=== PATIENT | female | born 1955 | race Caucasian/White ===

== ENCOUNTER 2017-01-06 19:42 | Emergency (ER) | payer MEDICAID ==
[~2017-01-06 19:42] MED LIST: ADULT LOW DOSE81 MG PO; ANTIVERT25 MG PO; BACTRIM 400-801 EACH PO; CIPRO DPS500 MG PO; CULTURELLE1 CAP PO; DIFLUCAN DPS150 MG PO; FLAGYL-DPS500 MG PO; GLUCAGON1 MG/ML SQ; GLUTOSE 1537.5 GM PO; LANTUS100 UNITS/ SQ; LASIX DPS40 MG PO; LEXAPRO DPS10 MG PO; LIPITOR DPS20 MG PO; MAALOX DPS30 ML PO; MAGOX 400400 MG PO; METAMUCIL PACK3.4 GM PO; NORVASC2.5 MG PO; NOVOLOG100 UNIT/2 SQ; PRINIVIL20 MG PO; TOPROL XL DPS25 MG PO; TYLENOL325 MG PO; VITAMIN D50000 UNIT PO; ZOFRAN ODT4 MG PO; ZOFRAN4 MG PO
--- NOTE | 2017-01-25 21:34 | ER ---
ADMIT: 01/06/2017 RM/LOC: ER [facility] MR#: [id number] [address] [address] CHERYL NOLAND [address] [place] [address] Emergency Room Report SEX: F AGE: 61 : 1955 DATE: 01/06/2017 A 61-year-old who comes to the Emergency Department with complaints of vomiting, weakness, body aches, fevers, chills. See T-sheet for remainder of history and physical. CBC was significant for white count of 13.1, hemoglobin 11.4, sodium 146, creatinine 1.8. UA showed 70 wbc's, 53 rbc's, leukocyte esterase 2+. The patient was given a liter of fluids in the Emergency Department, a gram of Rocephin IV, and a prescription for Levaquin 500 mg x14 days, and Zofran. Instructed to follow up this week with her physician. Damon Guzman MD/ lynette JOB #: [id number] CC: Ruiz Doyle MD, Attending Physician Daniel Waterman MD, Family Physician
[2017-02-08] MEDS ORDERED: CLARITIN DPS10 MG PO (20:53)
[2017-02-08] MEDS ORDERED: PRILOSEC DPS20 MG PO (20:53)
[2017-02-08] MEDS ORDERED: MAG-OX400 MG PO (20:53)
[2017-02-08] MEDS ORDERED: TRESIBA FL100 UNIT/1 SQ (20:56)
[2017-02-08] MEDS ORDERED: ZESTORETIC 10/11 TAB PO (20:57)
[2017-02-08] MEDS ORDERED: PROVENTIL HFA6.7 GM IH (20:57)
[2017-02-08] MEDS ORDERED: LASIX DPS20 MG PO (20:57)
[2017-02-08] MEDS ORDERED: NOVOLOG100 UNIT/2 SQ (20:57)
[2017-02-08] MEDS ORDERED: TOPROL XL25 MG PO (20:58)
[2017-02-08] MEDS ORDERED: NORVASC DPS10 MG PO (20:58)
[2017-02-08] MEDS ORDERED: VITAMIN D-32000 UNI1 PO (20:58)
[2017-02-08] MEDS ORDERED: ASPIR 8181 MG PO (20:59)
[2017-02-08] MEDS ORDERED: ATORVASTATIN CA80 MG PO (20:59)
[2017-06-16] MEDS ORDERED: MAG-OX400 MG PO (19:48)
[2017-06-16] MEDS ORDERED: NORVASC DPS10 MG PO (19:48)
[2017-06-16] MEDS ORDERED: SINGULAIR10 MG PO (19:49)
[2017-06-16] MEDS ORDERED: LASIX DPS40 MG PO (19:49)
[2017-06-16] MEDS ORDERED: ASPIRIN EC81 MG PO (19:49)
[2017-06-16] MEDS ORDERED: CLARITIN DPS10 MG PO (19:49)
[2017-06-16] MEDS ORDERED: ATORVASTATIN CA80 MG PO (19:49)
[2017-06-16] MEDS ORDERED: PRILOSEC DPS20 MG PO (19:50)
[2017-06-16] MEDS ORDERED: VITAMIN D-32000 UNI1 PO (19:50)
[2017-06-16] MEDS ORDERED: ZESTRIL DPS20 MG PO (19:50)
[2017-06-16] MEDS ORDERED: PROVENTIL HFA6.7 GM IH (19:50)
[2017-06-16] MEDS ORDERED: METOPROLOL TART25 MG PO (19:50)
[2017-06-16] MEDS ORDERED: TRESIBA FL100 UNIT/1 SQ (19:51)
[2017-06-16] MEDS ORDERED: FLONASE 0.05% D16 GM NS (19:51)
[2017-06-16] MEDS ORDERED: FISH OIL 1,0001 EACH PO (19:51)
[2017-06-16] MEDS ORDERED: DELTASONE20 MG PO (19:52)
[2017-06-16] MEDS ORDERED: PROAIR HFA8.5 GM IH (19:52)
[2017-06-16] MEDS ORDERED: DUONEB DPS3 ML IH (19:53)
[2017-06-16] MEDS ORDERED: ZITHROMAX250 MG PO (19:53)
== END 2017-01-06 22:30 | disposition home or self-care (01) ==
LOC: ER 19:42
DX: N39.0 Urinary tract infection, site not specified (principal); E11.9 Type 2 diabetes mellitus without complications; I10 Essential (primary) hypertension; Z79.899 Other long term (current) drug therapy

== ENCOUNTER 2017-02-05 19:50 | Observation (INO) | payer MEDICAID ==
[~2017-02-05] VITALS: Ht 160 cm; Wt 123.5 kg
--- NOTE | ~2017-02-05 | ECH ---
Transthoracic Echocardiography Report (TTE) Demographics Patient Name CHERYL NOLAND Date of Study 02/07/2017 ADELINA Patient Number [id number] Visit Number [id number] Date of 1955 Room Number 405 Accession Number [id number] Gender Female Age 62 year(s) Referring Zuly Espinoza Reserve Officer Rosey Stephen Physician Guevara Holguin MD [facility] Physician Interpreting Zuly VEGA Launch Check Out Physician Alexis Supervising Ordering Physician Zuly VGEA MD/BRENNAN Espinoza Nurse Stress Tax Lawyer Conclusions Contractility Score Summary Normal Left Ventricular contractility was noted. Summary Technically adequate exam. The estimated left ventricular ejection fraction is 55%. The left atrium is mildly dilated by LA volume index measurement. Mild tricuspid regurgitation by color Doppler. There is mild pulmonary hypertension. The pulmonary pressure (RVSP) is 39 mmHg. Trivial posterior pericardial effusion. Recommendation The patient will be given the results of this study by the physician who ordered the exam. Procedure Type of Study TTE procedure:Echo Complete SF. Procedure Date Date: 02/07/2017 Start: 09:34 AM Technical Quality: Adequate visualization Indications:Atypical Chest Pain, Diabetes and Hypertension. Appropriate Use Criteria: 9 Height: 63 inches Weight: 274 pounds BSA: 2.21 m Rhythm: NSR HR: 81 bpm BP: 141/67 mmHg M-Mode/2D Measurements LV Diastolic Dimension: 5.29 cm LV Systolic Dimension: 3.83 cm LV Septum Diastolic: 0.81 cm LV PW Diastolic: 0.69 cm AO Root Dimension: 2.66 cm Cardiac Output: 8.12 l/min LA Dimension: 4.38 cm Cardiac Index: 3.67 l/min*m RV Diastolic Dimension: 4.26 cm LA volume index: 39 ml/m Post Pericard Effusion: 0.4 cm LVOT: 2.09 cm LVOT VTI: 29.22 cm RV Base: 2.4 cm LV Stroke volume: 100.19 ml RV Mid: 1.8 cm LV Stroke volume index: 45.33 ml/m TAPSE: 3.3 cm TDI-S': 18 cm/s Doppler Measurements AV Peak Velocity: 1.5 m/s MV Peak E-Wave: 1.4 m/s AV Peak Gradient: 9 mmHg MV Peak A-Wave: 1.16 m/s AV Mean Gradient: 5.34 mmHg MV E/A Ratio: 1.21 LVOT Peak Velocity: 1.21 m/s MV P1/2t: 59.3 msec AV Area (Continuity):3.16 cm MV Deceleration Time: 203.1 msec TR Velocity:2.99 m/s MV Area (PHT): 3.71 cm TR Gradient:35.76 mmHg PV Peak Velocity: 1.39 m/s Estimated RAP:3 mmHg PV Peak Gradient: 7.77 mmHg Estimated RVSP: 39 mmHg Estimated PASP: 38.76 mmHg E' Septal Velocity: 0.12 m/s A' Septal Velocity: 0.09 m/s E' Lateral Velocity: 0.09 m/s A' Lateral Velocity: 0.08 m/s RA Area: 15.75 cm Findings Left Ventricle Normal left ventricle size and function. Diastolic assessment reveals normal relaxation. Right Ventricle Normal right ventricle structure and function. Left Atrium The left atrium is mildly dilated by LA volume index measurement. Right Atrium Normal right atrial size. Mitral Valve Normal mitral valve structure and function. Trivial mitral regurgitation by color Doppler. Aortic Valve Normal aortic valve structure and function. Tricuspid Valve Normal tricuspid valve structure and function. Mild tricuspid regurgitation by color Doppler. There is mild pulmonary hypertension. The pulmonary pressure (RVSP) is 39 mmHg. Pulmonic Valve Normal pulmonic valve structure and function. Trivial pulmonic valve regurgitation by color Doppler. Pericardial Effusion Trivial posterior pericardial effusion. Miscellaneous Visualized portions of the aortic root and ascending aorta appear normal in size. Pleural Effusion No evidence of pleural effusion. Contractility Score LV regional wall motion:(0-Non visualized 1-Normal 2-Hypokinesis 3-Akinesis 4-Dyskinesis 5-Aneurysm) Signature
--- NOTE | 2017-02-08 13:00 | ER ---
ADMIT: 02/05/2017 RM/LOC: 405 [facility] MR#: [id number] [address] [address] CHERYL NOLAND [address] [place] [address] Emergency Room Report SEX: F AGE: 62 : 1955 DATE: 02/05/2017 HISTORY OF PRESENT ILLNESS: The patient is a 62-year-old female with past medical history of hypertension, diabetes, CHF, anxiety, came to the ER with chief complaint of 7 hours of left anterior chest pressure and pain, which started while the patient felt more short of breath more than the baseline and had some cough. When the patient got to the ER, the pain was already resolved. The patient uses the baby aspirin 81 mg daily. The patient was given aspirin in the ER. EKG did not show any ST or T changes or signs of ischemia or arrhythmia, and it was normal sinus rhythm with a rate of 84. Chest x-ray showed cardiomegaly and not much change from previous chest x-ray. PHYSICAL EXAMINATION: GENERAL: The patient was in no pain or distress, obese lady, lying in bed. HEAD and NECK: Trachea is midline, no bruit on the neck, no murmurs radiating to the neck. CHEST: Mild decreased breath sounds bilaterally, and questionable mild wheezing bilaterally without any crackles. HEART: I heard S1-S2 without any murmurs or gallops. ABDOMEN: Nontender and distended and obese. EXTREMITIES: We have a pitting edema in the lower extremity bilaterally going through the foot to the legs. Normal peripheral pulses and no tenderness or no swelling in one leg. EMERGENCY ROOM COURSE: Troponin was elevated to 0.079, D-dimer was negative with value of 0.47, proBNP was 1500, and creatinine was 1.6, with glucose of 188. Family Medicine was consulted and the patient was admitted for further followups and treatments of chest pain, rule out non-STEMI. Reji Trinidad MD/ lynette JOB #: [id number] CC: Daniel Waterman MD, Attending Physician Daniel Waterman MD, Family Physician
[2017-02-08] MEDS ORDERED: CLARITIN DPS10 MG PO (20:53)
[2017-02-08] MEDS ORDERED: PRILOSEC DPS20 MG PO (20:53)
[2017-02-08] MEDS ORDERED: MAG-OX400 MG PO (20:53)
[2017-02-08] MEDS ORDERED: TRESIBA FL100 UNIT/1 SQ (20:56)
[2017-02-08] MEDS ORDERED: ZESTORETIC 10/11 TAB PO (20:57)
[2017-02-08] MEDS ORDERED: LASIX DPS20 MG PO (20:57)
[2017-02-08] MEDS ORDERED: NOVOLOG100 UNIT/2 SQ (20:57)
[2017-02-08] MEDS ORDERED: PROVENTIL HFA6.7 GM IH (20:57)
[2017-02-08] MEDS ORDERED: VITAMIN D-32000 UNI1 PO (20:58)
[2017-02-08] MEDS ORDERED: TOPROL XL25 MG PO (20:58)
[2017-02-08] MEDS ORDERED: NORVASC DPS10 MG PO (20:58)
[2017-02-08] MEDS ORDERED: ASPIR 8181 MG PO (20:59)
[2017-02-08] MEDS ORDERED: ATORVASTATIN CA80 MG PO (20:59)
--- NOTE | 2017-02-11 09:39 | CO ---
ADMIT: 02/05/2017 RM/LOC: 405 [facility] MR#: [id number] [address] [address] CHERYL NOLAND [address] [place] [address] Consultation SEX: F AGE: 62 : 1955 DATE OF CONSULTATION: 02/06/2017 ATTENDING PHYSICIAN: Daniel Waterman MD CONSULTING PHYSICIAN: Alexis Caruso MD REASON FOR CONSULT: Chest pain. Nicki Fisher RN, scribing for Dr. Alexis Caruso. HISTORY OF PRESENT ILLNESS: Cheryl is a pleasant 62-year-old female, I have been asked to see in Cardiology consultation by Dr. Daniel Waterman for chest discomfort. She follows regularly with [facility] and follows with Dr. Jus Franco. She was last seen in clinic in October. She has remote history of atrial fibrillation, hypertension, hyperlipidemia, diabetes, and former tobacco use. She has past history of abnormal stress test in 2014, but repeat stress test at the end of September of this year was normal. Cheryl also has history of sleep apnea. Cheryl presented to [facility] with complaints of chest discomfort. She states that she was at court yesterday about 11:30 for general collections and after that began having some pressure in the left side of her chest radiating then on the right, then back to the left. She stated that after a short period of time, it abated. She then had a routine appointment with her primary care physician around 1:30. She said that she was feeling okay at that time but did let him know about her chest discomfort. She said then last night, she was cooking dinner and was having some chest discomfort. She tried eating but then developed sharp pain which was different than the pain she was having earlier in the day, and left side of her chest, she felt more short of breath and mildly lightheaded. She also describes a headache at that time. She denies any palpitations, nausea, or diaphoresis. She decided to come to the hospital. She was given aspirin, stated that helps her pain more than anything. On exam today, on palpation, she notes increased discomfort with palpation of her left chest similar to what she was experiencing yesterday. Cardiac enzymes were checked x3. CK and MB were normal. She did have mild elevation of troponin with peak on first set of 0.079. Her creatinine is also elevated at 1.6. She is mildly anemic at 10.7 hemoglobin. Her white count is elevated at 11.5. Currently, she is resting comfortably. EKG does not show any significant ST-T changes. PAST MEDICAL HISTORY: Remote history of atrial fibrillation, hypertension, hyperlipidemia, diabetes, former tobacco use, gastroesophageal reflux disease, osteomyelitis resulting in right metatarsal foot ulcer and right 4th toe amputation, lower extremity neuropathy, depression, obstructive sleep apnea, cataracts status post extraction. PAST SURGICAL HISTORY: Includes cataract and reports great toe amputation. ALLERGIES: PENICILLIN AND IBUPROFEN. ADMIT: 02/05/2017 RM/LOC: 405 [facility] MR#: [id number] [address] [address] CHERYL NOLAND [address] [place] [address] Consultation SEX: F AGE: 62 : 1955 MEDICATIONS: Current medications include: 1. Aspirin 81 mg daily. 2. Lipitor 80 mg at bedtime. 3. Norvasc 10 daily. 4. Protonix 40 daily. 5. Toprol-XL 25 daily. 6. Vitamin D 2000 units daily. 7. Zestoretic 12.5 daily. 8. DuoNeb q.i.d. 9. Heparin 5000 units subcutaneous t.i.d. 10.Levemir 60 at bedtime. 11.NovoLog sliding scale insulin before meals and at bedtime. 12.Rocephin 1 g IV q.24 hours. FAMILY HISTORY: Positive family history of father having heart disease at the age of 79. Positive family history of diabetes in both parents and brother. Positive family history of cancer in brother who had lung cancer. Denies family history of stroke. SOCIAL HISTORY: Cheryl lives with her daughter. She also has home health nurse available to her. Denies any alcohol or drug use. She quit smoking, she reports. REVIEW OF SYSTEMS: GENERAL: Reports increased fatigue as of yesterday. Denies any recent fever, chills, sweats, or weight changes. EYES: History of cataracts, status post extraction. Denies any cyst extraction. Denies any blurry vision, double vision. ENT: Denies hearing loss or problems with nose, mouth or throat. PULMONARY: History of obstructive sleep apnea. She does not tolerate CPAP. Denies any hemoptysis. GASTROINTESTINAL: History of acid reflux and gastroesophageal reflux disease. Denies any trouble swallowing, hiatal hernia, GI bleeding, or gallbladder issues. GENITOURINARY: Elevated creatinine. Denies any urinary tract infections. MUSCULOSKELETAL: History of osteomyelitis with right metatarsal foot ulcer. She has some musculoskeletal pain in her upper extremity. ENDOCRINE: Positive for diabetes. Denies thyroid disease. HEMATOLOGIC: Denies history of anemia, easy bruising, or cancer. NEUROLOGIC: History of neuropathy. Denies stroke or seizure. PSYCHIATRIC: History of depression. Denies anxiety. PHYSICAL EXAMINATION: VITAL SIGNS: 131/66, heart rate 71, respirations 14, temperature 96.0, oxygenation 93% on room air. EYES: Sclerae clear. No xanthelasmas. ENT: Oral mucosa is pink and moist. No carotid bruits. JVP unable to visualize. CHEST: Respirations are even and unlabored. Lungs are clear to auscultation. ADMIT: 02/05/2017 RM/LOC: 405 [facility] MR#: [id number] 2620 [facility] [address] [place] [address] CHERYL NOLAND [address] [place] [address] Consultation SEX: F AGE: 62 : 1955 HEART: Regular rate and rhythm. Distant heart sounds. ABDOMEN: Soft and nontender. MUSCULOSKELETAL: Gait is normal. EXTREMITIES: No cyanosis or clubbing. Trace edema bilaterally. PSYCHIATRIC: Alert and oriented. Mood and affect are appropriate. DIAGNOSTIC DATA: Chest x-ray on 02/05 shows no acute decompensation. Sodium 143, potassium 4.1, BUN 22, creatinine 1.6, glucose 188, magnesium 2.4, proBNP 1565, white blood cell count 11.5, hemoglobin 10.7, hematocrit 33.9, platelets 189. CK 150, MB 1.7, troponin 0.066 on third set. ASSESSMENT AND PLAN: 1. Atypical chest pain. She has no EKG changes. Her troponin is indeterminate but has no dynamic changes. She had a recent stress test in September that was normal. I will check echocardiogram for any wall motion abnormalities, valvular abnormalities, or decreased ejection fraction. If this is normal, I would recommend treating her medically. Her chest pain appears to be more musculoskeletal with increased pain with palpation. 2. Hypertension. 3. Hyperlipidemia. 4. Diabetes. 5. Obesity. Thank you for the consultation. "I have read and agree with the documentation that has been completed regarding this visit. By signing this record, I attest that the documentation was completed in my physical presence and is an accurate record of the encounter." Nicki Fisher RN / Alexis Caruso MD / cheril JOB #: [id number] CC: Daniel Waterman MD, Attending Physician Daniel Waterman MD, Family Physician
--- NOTE | 2017-02-16 21:00 | HP ---
ADMIT: 02/05/2017 RM/LOC: 405 [facility] MR#: [id number] [id number] [facility] [address] [place] [id number] CHERYL NOLAND [address] [place] [address] History and Physical SEX: F AGE: 62 : 1955 DATE OF SERVICE: CHIEF COMPLAINT: Chest pain. HISTORY OF PRESENT ILLNESS: Patient is a 62-year-old female, who comes in complaining of about 7 hours of anterior chest pressure and pain radiating to bilateral shoulders. She was actually just seen in clinic by Dr. Daniel Waterman on 02/05/2017, and from what I can gather, she was following up from hospitalization in [place] for E. coli urosepsis and was also having some mild chest discomfort at that time. She tells me today that during her hospitalization, she did have some cardiac problems and was told her heart was "in distress" and she was following with a platform architect there. Her symptoms were not too severe at the clinic appointment, however, after she went home, she started having the anterior chest pain while she was cooking dinner. She tried to ignore it, ate her meal, but it was still present several hours later. She notes that it was present continuously with and without exertion. It was non positional. She says it felt like someone was sitting on her chest. She also notes that was causing pain down her left arm, so her daughter brought her into the emergency room. She was seen in the emergency room at about 8 p.m. which was 7 hours after the onset of the chest pain. She said her chest pain had resolved, but she was still concerned and wanted to get it worked up. ER course; chest x-ray was benign. EKG showed normal sinus rhythm. She does have a history of chronically elevated troponins around the range of 0.04. However, in the ER, she was found have a troponin of 0.079 and a BNP of 15,000. Her creatinine was 1.6 which is about her baseline. D-dimer was 0.47, she was admitted for chest pain rule out. PAST MEDICAL HISTORY: Diabetes, hypertension, gout, hyperlipidemia. She did have an intermediate stress test in the fall of 2014 with reversible anterior wall ischemia. She follows with [facility] for this. PAST SURGICAL HISTORY: Toe amputation, carpal tunnel syndrome, . MEDICATIONS: 1. Omeprazole 20 mg daily. 2. Loratadine 10 mg daily. 3. Magnesium oxide 400 mg b.i.d. 4. Tresiba FlexTouch pen 80 units at bedtime. 5. NovoLog FlexPen 15 units with meals. 6. Proventil as needed. 7. Lisinopril hydrochlorothiazide 07/10.5 one tab daily. 8. Furosemide 20 mg tab daily. 9. Metoprolol ER 25 mg daily. 10.Amlodipine 10 mg daily. 11.Aspirin 81 mg daily. 12.Atorvastatin 80 mg daily. 13.Vitamin D 2000 units every day. 14.She also has prescriptions for Keflex 500 t.i.d., fluconazole 150 mg daily, and Tamiflu 75 mg though she is not taking those at this time. ADMIT: 02/05/2017 RM/LOC: 405 [facility] MR#: [id number] [address] [address] CHERYL NOLAND [address] [place] [address] History and Physical SEX: F AGE: 62 : 1955 ALLERGIES: NO KNOWN MEDICAL ALLERGIES. FAMILY HISTORY: Includes various family members with hypertension, asthma, diabetes, depression, anxiety, and breast cancer. SOCIAL HISTORY: Patient does admit to prior tobacco use. She is not currently smoking. Denies alcohol or illicit drug use. She does live with her daughter at the current time. REVIEW OF SYSTEMS: A 10-point review of systems was performed and is negative except as noted above per HPI. In general, she denies fevers, chills, or shortness of breath. She does endorse chest pain as described above. She did not have any dyspnea, diaphoresis, nausea, vomiting, or abdominal pain with this. PHYSICAL EXAMINATION: VITAL SIGNS: Temp 98.0, heart rate 79, respirations 18, blood pressure 149/63, O2 saturation 96% on room air. GENERAL: Patient is awake, alert, oriented x3. She is in no acute distress. HEENT: Normocephalic and atraumatic. PERRLA. EOMI. Mucous membranes are moist. NECK: Supple. No lymphadenopathy palpated. CARDIOVASCULAR: Distant due to body habitus but regular rhythm and rate. No murmurs noted. PULM: Again distant due to body habitus. Does have trace wheezes diffusely. ABDOMEN: Obese, soft, nontender, nondistended. EXTREMITIES: Show no clubbing, cyanosis, or edema. LABS AND IMAGING: White count 11.5, hemoglobin 10.7. CK-MB was 2.5, on repeat check was 2.0. Her troponin was 0.079 and on repeat check was 0.067. EKG shows normal sinus rhythm. Chest x-ray was normal. ASSESSMENT: 1. Angina with a history of intermediate stress test in 2014 with reversible anterior wall ischemia. ADMIT: 02/05/2017 RM/LOC: 405 [facility] MR#: [id number] [address] [place] [id number] BOSSMANSHARATH KIRKPATRICK CHERYLPANCHITO SAHU [address] [place] [address] History and Physical SEX: F AGE: 62 : 1955 2. Hypertension. 3. Hyperlipidemia. 4. Type 2 diabetes. 5. Obesity. PLAN: Patient was just in the hospital in [place]. It sounds like they were doing a cardiac work up. She also does have a pretty significant history for cardiac disease as well as multiple risk factors. We will get the last set of enzymes but given her complicated history, would like Cardiology's input. She may need either a repeat stress test or possibly catheterization at this time. She is not currently having any pain but she does have morphine p.r.n. if she should need it. Await Cardiology input. Get Tang MD Resident / Daniel Waterman MD / cheril JOB #: [id number] CC: Daniel Waterman MD, Attending Physician Daniel Waterman MD, Family Physician
[2017-06-16] MEDS ORDERED: MAG-OX400 MG PO (19:48)
[2017-06-16] MEDS ORDERED: NORVASC DPS10 MG PO (19:48)
[2017-06-16] MEDS ORDERED: CLARITIN DPS10 MG PO (19:49)
[2017-06-16] MEDS ORDERED: ASPIRIN EC81 MG PO (19:49)
[2017-06-16] MEDS ORDERED: LASIX DPS40 MG PO (19:49)
[2017-06-16] MEDS ORDERED: SINGULAIR10 MG PO (19:49)
[2017-06-16] MEDS ORDERED: ATORVASTATIN CA80 MG PO (19:49)
[2017-06-16] MEDS ORDERED: PRILOSEC DPS20 MG PO (19:50)
[2017-06-16] MEDS ORDERED: ZESTRIL DPS20 MG PO (19:50)
[2017-06-16] MEDS ORDERED: VITAMIN D-32000 UNI1 PO (19:50)
[2017-06-16] MEDS ORDERED: METOPROLOL TART25 MG PO (19:50)
[2017-06-16] MEDS ORDERED: PROVENTIL HFA6.7 GM IH (19:50)
[2017-06-16] MEDS ORDERED: TRESIBA FL100 UNIT/1 SQ (19:51)
[2017-06-16] MEDS ORDERED: FLONASE 0.05% D16 GM NS (19:51)
[2017-06-16] MEDS ORDERED: FISH OIL 1,0001 EACH PO (19:51)
[2017-06-16] MEDS ORDERED: PROAIR HFA8.5 GM IH (19:52)
[2017-06-16] MEDS ORDERED: DELTASONE20 MG PO (19:52)
[2017-06-16] MEDS ORDERED: DUONEB DPS3 ML IH (19:53)
[2017-06-16] MEDS ORDERED: ZITHROMAX250 MG PO (19:53)
== END 2017-02-07 14:30 | disposition home health service (06) ==
LOC: ER 19:50 → 4PCU 21:00
PROVIDERS: ADMIT Family Medicine
DX: R07.89 Other chest pain (principal); I10 Essential (primary) hypertension; E78.5 Hyperlipidemia, unspecified; E11.9 Type 2 diabetes mellitus without complications; E66.9 Obesity, unspecified; Z88.0 Allergy status to penicillin; Z79.82 Long term (current) use of aspirin; Z79.899 Other long term (current) drug therapy; Z89.429 Acquired absence of other toe(s), unspecified side

== ENCOUNTER → 2017-03-20 | Outpatient (CLI) | payer MEDICAID ==
[~2017-03-20] MED LIST changes: +ASPIR 8181 MG PO; +ASPIRIN EC81 MG PO; +ATORVASTATIN CA80 MG PO; +CLARITIN DPS10 MG PO; +DELTASONE20 MG PO; +DUONEB DPS3 ML IH; +FISH OIL 1,0001 EACH PO; +FLONASE 0.05% D16 GM NS; +LASIX DPS20 MG PO; +MAG-OX400 MG PO; +METOPROLOL TART25 MG PO; +NORVASC DPS10 MG PO; +PRILOSEC DPS20 MG PO; +PROAIR HFA8.5 GM IH; +PROVENTIL HFA6.7 GM IH; +SINGULAIR10 MG PO; +TOPROL XL25 MG PO; +TRESIBA FL100 UNIT/1 SQ; +VITAMIN D-32000 UNI1 PO; +ZESTORETIC 10/11 TAB PO; +ZESTRIL DPS20 MG PO; +ZITHROMAX250 MG PO
== END | disposition home or self-care (01) ==
LOC: RESC 03-13 10:53
DX: R06.02 Shortness of breath (principal); R05 Cough